=== PATIENT | female | born 1950 | race Caucasian/White ===

== ENCOUNTER → 2016-05-15 16:45 | Outpatient (CLI) | payer MEDICARE, BC ==
[2013-02-24 06:07] VITALS: BMI 28.7
[~2016-05-15 16:45] MED LIST: BYSTOLIC5 MG PO; CALAN SR240 MG PO; CARDURA2 MG PO; CRESTOR10 MG PO; SYNTHROID150 MCG PO
== END | disposition home or self-care (01) ==
LOC: D.MAMMO 04-15 16:15
DX: Z12.31 Encounter for screening mammogram for malignant neoplasm of breast (principal)

== ENCOUNTER 2018-04-26 19:00 | Outpatient (CLI) | payer MEDICARE, BC ==
[2013-02-24 06:07] VITALS: BMI 28.7
== END 2018-04-26 23:59 | disposition home or self-care (01) ==
LOC: D.MAMMO 19:00
PROVIDERS: ATTEND Family Medicine
DX: Z12.31 Encounter for screening mammogram for malignant neoplasm of breast (principal)